=== PATIENT | male | born 1950 | race Caucasian/White ===

== ENCOUNTER → 2017-08-31 | Outpatient (CLI) | payer MEDICARE, OTHER ==
[~2017-08-31] MED LIST: GLUCOPHAGE500 MG PO; MEN'S MULTI-VI1 EACH PO; PRAVACHOL10 MG PO; VICODIN,LORT1 TABLET PO; ZESTRIL5 MG PO
== END | disposition home or self-care (01) ==
LOC: CDC 09:13
DX: Z01.810 Encounter for preprocedural cardiovascular examination (principal); K42.9 Umbilical hernia without obstruction or gangrene
CPT/HCPCS: 93000

== ENCOUNTER 2017-09-07 06:52 | Day surgery (SDC) | payer OTHER ==
[~2017-09-07] VITALS: Ht 177.8 cm; Wt 108.9 kg
[2017-09-07 07:42] VITALS: BP 172/91
[2017-09-07] MEDS ORDERED: NORCO 5/3251 TABLET PO (11:08)
[2017-09-07 11:50] VITALS: BP 120/71
[2017-09-07 12:55] VITALS: BP 119/67
[2017-09-07 15:10] VITALS: BP 131/77
== END 2017-09-07 15:40 | disposition home or self-care (01) ==
LOC: SDC
PROVIDERS: Surgery
PROC: 0WUF4JZ Supplement Abdominal Wall with Synthetic Substitute, Percutaneous Endoscopic Approach (ICD-10-PCS; principal; 2017-09-07)
DX: K43.9 Ventral hernia without obstruction or gangrene (principal); I10 Essential (primary) hypertension; E11.9 Type 2 diabetes mellitus without complications; E78.5 Hyperlipidemia, unspecified; Z86.010 Personal history of colon polyps; Z79.84 Long term (current) use of oral hypoglycemic drugs; Z82.49 Family history of ischemic heart disease and other diseases of the circulatory system; Z83.3 Family history of diabetes mellitus; Z83.49 Family history of other endocrine, nutritional and metabolic diseases
CPT/HCPCS: 82948; 88302; C1781; J0131; J0330; J0690; J1100; J1170; J1885; J2405; J2710; J3010